=== PATIENT | female | born 1980 | race Caucasian/White ===

== ENCOUNTER 2019-12-04 08:45 | Day surgery (SDC) | payer BC ==
--- NOTE | 2019-12-02 09:57 | HP ---
DATE OF SURGERY: 12/04/2019 ANTICIPATED PROCEDURE: Laparoscopic cholecystectomy possible open liver biopsy. HISTORY OF PRESENT ILLNESS: The patient has symptomatic cholelithiasis, was seen and examined. Procedure discussed in detail and wished to proceed. PAST MEDICAL HISTORY: ALLERGIES: NONE. MEDICATIONS: Paxil. PAST SURGICAL HISTORY: None. SOCIAL HISTORY: Negative. FAMILY HISTORY: Negative. REVIEW OF SYSTEMS: CVS: Negative. PULMONARY: Negative. : Negative. Ortho/Neuro: Negative. PHYSICAL EXAMINATION: VITAL SIGNS: Normal. CHEST: Clear. COR: Regular. ABDOMEN: Satisfactory. IMPRESSION: Symptomatic cholelithiasis. PLAN: Laparoscopic cholecystectomy.
[~2019-12-04 08:45] MED LIST: Lactated Ringers 1,000 ML IV ONE; Sensorcaine 0.25% 10 ML ONE
[2019-12-04] MEDS ORDERED: Lactated Ringers 1,000 ML IV ONE ×2 (09:11→11:47)
[2019-12-04] MEDS ORDERED: MEFOXIN 2 GM PREMIX** 2 GM/50 ML ML IV ONE ×2 (09:11)
[2019-12-04] MEDS ORDERED: Lactated Ringers 1,000 ML IV SCH (09:30)
[2019-12-04] MEDS ORDERED: DIPRIVAN 200 MG/20 ML IV ONE (10:45)
[2019-12-04] MEDS ORDERED: Quelicin Fliptop 200 MG/10 ML ONE (10:45)
[2019-12-04] MEDS ORDERED: Zemuron 100 MG/10 ML ONE ×2 (10:45→11:50)
[2019-12-04] MEDS ORDERED: SUBLIMAZE 250 MCG/5 ML ONE (10:46)
[2019-12-04] MEDS ORDERED: Versed 2 MG/2 ML Injection ONE (10:46)
[2019-12-04] MEDS ORDERED: BRIDION 200MG/2ML IV ONE (11:48)
[2019-12-04] MEDS ORDERED: Zofran 4 MG/2 ML VIAL ONE (11:48)
[2019-12-04] MEDS ORDERED: SUBLIMAZE 100 MCG/2 ML ONE (12:29)
[2019-12-04] MEDS ORDERED: Compazine 10 MG/2 ML ONE (12:30)
[2019-12-04] MEDS ORDERED: MORPHINE SULFATE 10 MG/ML ONE (12:40)
--- NOTE | 2019-12-04 13:39 | OP ---
SURGERY DATE/TIME: 12/04/2019 1206 PREOPERATIVE DIAGNOSIS: Symptomatic cholelithiasis. POSTOPERATIVE DIAGNOSIS: Symptomatic cholelithiasis. PROCEDURE: Laparoscopic cholecystectomy. SURGEON: Dr. Yanez. ANESTHESIA: General endotracheal tube. COMPLICATIONS: None. CONDITION: Stable. INDICATIONS: A patient with upper abdominal pain, ultrasound positive. Seen and examined. Procedure discussed in detail and wished to proceed. DESCRIPTION OF PROCEDURE AND FINDINGS: Taken to surgery. General anesthetic, routine prep and drape. Veress needle inserted. Opening pressure of 1, insufflating pressure 14. Four - 5's. Good visualization. Cystic duct defined. Cystic artery defined. Both structures triply clipped and transected. Clips noted across and well approximated. Gallbladder rolled out of gallbladder fossa. The gallbladder delivered through upper abdominal port. It was necessary to remove the stones first and then the gallbladder. The field was totally dry. Hole closure device used in epigastrium with two sutures #0 Vicryl. The hole closed nicely. Skin closed with aime. Sterile dressing applied. The patient tolerated the procedure satisfactorily. Findings and pictures discussed with the family in the waiting room.
[2019-12-04] MEDS ORDERED: MORPHINE SULFATE 2 MG INJ IV PRN (14:04)
[2019-12-04] MEDS ORDERED: MORPHINE SULFATE 2 MG INJ ONE (14:08)
[2019-12-04 15:08] VITALS: O2SAT 95
[2019-12-04 16:12] VITALS: BP 108/64; PULSE 91
== END 2019-12-04 15:55 | disposition home or self-care (01) ==
LOC: SDC 08:45
PROVIDERS: ATTEND Surgery
DX: K80.20 Calculus of gallbladder without cholecystitis without obstruction (principal)
CPT/HCPCS: 84703; 88304; J0330; J0694; J2250; J2270; J2405; J2704; J3010

== ENCOUNTER 2024-09-18 17:10 | Emergency (ER) | payer OTHER ==
--- NOTE | 2024-09-18 17:28 | ERPHSYRPT ---
- History of Present Illness Source: patient, family Exam Limitations: no limitations Timing/Duration: today Severity: mild Character of Deficits: altered sensation, Left Facial Deficits: no difficulties Baseline/Normal Cognition: alert oriented x 3 Current Cognition: alert oriented x 3 Baseline Gait: walks w/o assistance Associated Symptoms: denies symptoms, No confusion, No loss of consciousness, No weakness, No vision changes, No chest pain, No headache Hx Tetanus, Diphtheria Vaccination/Date Given: Yes Hx Influenza Vaccination/Date Given: No Hx Pneumococcal Vaccination/Date Given: No <ZOEY READ - Last Filed: 09/18/24 18:46> <URVASHI SMITH - Last Filed: 09/18/24 20:10> - History of Present Illness Time Seen by Provider: 09/18/24 17:28 Physician History: This is a morbidly obese 44-year-old white female patient of Dr. Sebastian who presents to the emergency department secondary to left facial numbness that began approximately noon today. The patient states that she also has some left- sided tongue numbness. The symptoms are faint in both areas. Patient states over the last 5 to 6 hours it is no worse and may be slightly improved. 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 Patient is a daily smoker of tobacco cigarettes. She has a history of hypertension, depression, anxiety and hyperlipidemia. Patient states that she has not been sleeping well in the last 2 days. She also is under a lot of stress. Patient's NIH stroke score is 0 (ZOEY READ) Allergies/Adverse Reactions: No Known Drug Allergies Allergy (Verified 09/18/24 17:24) Home Medications: Paroxetine HCl 20 mg [Paxil 20 MG] 20 mg PO DAILY 11/26/19 [History] Atorvastatin Calcium 1 tab PO DAILY 09/18/24 [History] Phentermine HCl 1 tab PO DAILY 09/18/24 [History] Travel Risk - International Travel Have you traveled outside of the country in past 3 weeks: No - Emerging Infectious Disease Are you exhibiting symptoms associated with any current EIDs: No <ZOEY READ - Last Filed: 09/18/24 18:46> - Review of Systems Constitutional: No Symptoms Eyes: No Symptoms Ears, Nose, & Throat: No Symptoms Respiratory: No Symptoms Cardiac: No Symptoms Abdominal/Gastrointestinal: No Symptoms Genitourinary Symptoms: No Symptoms Musculoskeletal: No Symptoms Skin: No Symptoms Neurological: Parasthesia (Mild left face and left side tongue numbness. She describes the intensity as faint) Psychological: No Symptoms Endocrine: No Symptoms Hematologic/Lymphatic: No Symptoms Immunological/Allergic: No Symptoms All Other Systems: Reviewed and Negative <ZOEY READ - Last Filed: 09/18/24 18:46> - Past Medical History Pertinent Past Medical History: No Neurological History: No Pertinent History ENT History: No Pertinent History Cardiac History: No Pertinent History Respiratory History: Sleep Apnea Endocrine Medical History: No Pertinent History Musculoskeletal History: No Pertinent History GI Medical History: Other History: No Pertinent History Psycho-Social History: No Pertinent History Female Reproductive Disorders: No Pertinent History Other Medical History: fatty liver - Past Surgical History Past Surgical History: Yes Neuro Surgical History: No Pertinent History Cardiac: No Pertinent History Respiratory: No Pertinent History Gastrointestinal: No Pertinent History Genitourinary: No Pertinent History Musculoskeletal: No Pertinent History Female Surgical History: No Pertinent History Other Surgical History: leg boil wayne left leg about 11 yrs ago - Female History Hx Last Menstrual Period: 3 weeks - Social History Smoking Status: Current every day smoker Exposure to second hand smoke: No Drug Use: none Patient Lives Alone: No <ZOEY READ - Last Filed: 09/18/24 18:46> - [place] Coma Scale Best Eye Response (Tanya): (4) open spontaneously Best Verbal Response ([place]): (5) oriented Best Motor Response (Tanya): (6) obeys commands Lit[place] Total: 15 - Physical Exam General Appearance: no apparent distress, alert, anxiety, obese Eye Exam: bilateral eye: normal inspection, PERRL, EOMI Ears, Nose, Throat Exam: normal ENT inspection, moist mucous membranes Neck Exam: normal inspection, non-tender, supple, full range of motion Respiratory: normal breath sounds, lungs clear, airway intact, No chest tenderness, No respiratory distress Cardiovascular: regular rate/rhythm, normal heart sounds, normal peripheral pulses Gastrointestinal: soft, normal bowel sounds, No tenderness Pelvic Exam: not done Rectal Exam: not done Back Exam: normal inspection, normal range of motion, vertebral tenderness, No CVA tenderness Extremity Exam: normal inspection, normal range of motion, pelvis stable Mental Status: alert, oriented x 3, cooperative word processor operator Exam: normal hearing, normal speech, PERRL, tongue midline, No facial droop Coordination/Gait: normal finger to nose, normal gait, normal cerebellar funct ion Motor/Sensory: no motor deficit, no sensory deficit, no pronator drift Skin Exam: normal color, warm, dry SpO2 Interpretation: normal O2 Delivery: Room Air <ZOEY READ - Last Filed: 09/18/24 18:46> - Nursing Vital Signs Nursing Vital Signs: Initial Vital Signs Temperature 97.7 F 09/18/24 17:24 Pulse Rate 93 H 09/18/24 17:24 Respiratory Rate 20 09/18/24 17:24 Blood Pressure 157/81 09/18/24 17:24 O2 Sat by Pulse Oximetry 98 09/18/24 17:24 Pain Scale Pain Intensity 0 - Course Nursing assessment & vital signs reviewed: Yes <ZOEY READ - Last Filed: 09/18/24 18:46> Ordered Tests: Active Orders 24 hr Category Date Time Status NPO (ED) STAT Care 09/18/24 18:05 Active HEAD WITHOUT CONTRAST [CT] Stat Exams 09/18/24 18:06 Taken CBC W DIFF Stat Lab 09/18/24 18:18 Completed CMP Stat Lab 09/18/24 18:18 Completed HCG QUALITATIVE, URINE Stat Lab 09/18/24 18:38 Completed UA W/RFX UR CULTURE Stat Lab 09/18/24 18:38 Completed Lab/Rad Data: Laboratory Result Diagrams 09/18/24 18:18 09/18/24 18:18 Laboratory Results 09/18/24 09/18/24 09/18/24 Range/Units 18:38 18:38 18:18 WBC (3.98-10.04) x10^3/uL RBC (3.93-5.22) x10^6/uL Hgb (11.2-15.7) g/dL Hct (34.1-44.9) % MCV (79.4-94.8) fL MCH (25.6-32.2) pg MCHC (32.2-35.5) g/dL RDW (11.7-14.4) % Plt Count (182-369) x10^3/uL MPV (9.4-12.3) fL Gran % (34.0-71.1) % Immature Gran % (Auto) (0.001-0.429) % Nucleat RBC Rel Count (0.00-0.2) % Eos # (Auto) (0.04-0.36) x10^3/uL Immature Gran # (Auto) (0.001-0.031) x10^3u/L Absolute Lymphs (auto) (1.18-3.74) x10^3/uL Absolute Monos (auto) (0.24-0.86) x10^3/uL Absolute Nucleated RBC (0.00-0.012) x10^3u/L Lymphocytes % (19.3-51.7) % Monocytes % (4.7-12.5) % Eosinophils % (0.7-5.8) % Basophils % (0.1-1.2) % Absolute Granulocytes (1.56-6.13) x10^3/uL Basophils # (0.01-0.08) x10^3/uL Sodium 138 (135-145) mmol/L Potassium 4.4 (3.5-5.1) mmol/L Chloride 105 (98-107) mmol/L Carbon Dioxide 27 (22-30) mmol/L Anion Gap 10.8 (5-15) MEQ/L BUN 12 (7-17) mg/dL Creatinine 0.62 (0.52-1.04) mg/dL Estimated GFR 114.0 ML/MIN Glucose 94 (74-106) mg/dL Calcium 9.2 (8.4-10.2) mg/dL Total Bilirubin 0.50 (0.2-1.3) mg/dL AST 44 H (14-36) U/L ALT 31 (0-35) U/L Alkaline Phosphatase 56 (38-126) U/L Serum Total Protein 7.6 (6.3-8.2) g/dL Albumin 4.3 (3.5-5.0) g/dL Urine Color Yellow (Yellow) Urine Appearance Clear (Clear) Urine pH 5.0 (4.6-8.0) Ur Specific Conroy 1.010 (1.005-1.030) Urine Protein Negative (Negative) Urine Glucose (UA) Negative (Negative) mg/dL Urine Ketones Negative (Negative) Urine Blood Negative (Negative) Urine Nitrite Negative (Negative) Urine Bilirubin Negative (Negative) Urine Urobilinogen 0.2 (0.2) mg/dL Ur Leukocyte Esterase Negative (Negative) U Hyaline Cast (Auto) NONE SEEN (0-2) /LPF Urine Microscopic RBC 0-2 (0-5) /HPF Urine Microscopic WBC 0-2 (0-5) /HPF Ur Epithelial Cells None Seen (None Seen) /HPF Urine Bacteria Few A (None Seen) /HPF Urine Culture Reflexed NO (NO) Urine HCG, Qual NEGATIVE (NEGATIVE) 09/18/24 Range/Units 18:18 WBC 9.0 (3.98-10.04) x10^3/uL RBC 4.26 (3.93-5.22) x10^6/uL Hgb 12.9 (11.2-15.7) g/dL Hct 39.2 (34.1-44.9) % MCV 92.0 (79.4-94.8) fL MCH 30.3 (25.6-32.2) pg MCHC 32.9 (32.2-35.5) g/dL RDW 12.6 (11.7-14.4) % Plt Count 304 (182-369) x10^3/uL MPV 9.7 (9.4-12.3) fL Gran % 69.8 (34.0-71.1) % Immature Gran % (Auto) 0.3 (0.001-0.429) % Nucleat RBC Rel Count 0.0 (0.00-0.2) % Eos # (Auto) 0.13 (0.04-0.36) x10^3/uL Immature Gran # (Auto) 0.03 (0.001-0.031) x10^3u/L Absolute Lymphs (auto) 2.12 (1.18-3.74) x10^3/uL Absolute Monos (auto) 0.39 (0.24-0.86) x10^3/uL Absolute Nucleated RBC 0.00 (0.00-0.012) x10^3u/L Lymphocytes % 23.6 (19.3-51.7) % Monocytes % 4.3 L (4.7-12.5) % Eosinophils % 1.4 (0.7-5.8) % Basophils % 0.6 (0.1-1.2) % Absolute Granulocytes 6.26 H (1.56-6.13) x10^3/uL Basophils # 0.05 (0.01-0.08) x10^3/uL Sodium (135-145) mmol/L Potassium (3.5-5.1) mmol/L Chloride (98-107) mmol/L Carbon Dioxide (22-30) mmol/L Anion Gap (5-15) MEQ/L BUN (7-17) mg/dL Creatinine (0.52-1.04) mg/dL Estimated GFR ML/MIN Glucose (74-106) mg/dL Calcium (8.4-10.2) mg/dL Total Bilirubin (0.2-1.3) mg/dL AST (14-36) U/L ALT (0-35) U/L Alkaline Phosphatase (38-126) U/L Serum Total Protein (6.3-8.2) g/dL Albumin (3.5-5.0) g/dL Urine Color (Yellow) Urine Appearance (Clear) Urine pH (4.6-8.0) Ur Specific Conroy (1.005-1.030) Urine Protein (Negative) Urine Glucose (UA) (Negative) mg/dL Urine Ketones (Negative) Urine Blood (Negative) Urine Nitrite (Negative) Urine Bilirubin (Negative) Urine Urobilinogen (0.2) mg/dL Ur Leukocyte Esterase (Negative) U Hyaline Cast (Auto) (0-2) /LPF Urine Microscopic RBC (0-5) /HPF Urine Microscopic WBC (0-5) /HPF Ur Epithelial Cells (None Seen) /HPF Urine Bacteria (None Seen) /HPF Urine Culture Reflexed (NO) Urine HCG, Qual (NEGATIVE) <ZOEY READ - Last Filed: 09/18/24 18:46> - Progress Counseled pt/family regarding: lab results, diagnosis, need for follow-up, rad results <URVASHI SMITH - Last Filed: 09/18/24 20:10> - Progress Progress Note: 09/18/24 18:02 My medical decision making and the assignment of moderate complexity to this patient's medical issue today is based on review of the patient's past medical history, review the patient's medication list, reviewed patient drug allergy list, history present illness and physical findings on examination. The workup in this patient includes CBC, CMP, urinalysis, test, CT scan of the head without contrast, Differential diagnosis includes but is not limited to anxiety about health, dehydration, , urinary tract infection, electrolyte abnormalities, acute intracranial abnormality, Gray's palsy 09/18/24 18:46 I am transferring care of this patient to Dr. Smith at shift change. He will follow-up on the pending studies and make final disposition (ZOEY READ) Assumed care at [address] pending, on reeavaluation patient continues to have NIH of 0, numbness and tingling resolved. Still reports CTS sxs on the left. CT head negative. No significant lab abnormalities. DC home with return precautions and advise close follow up with Dr. Sebastian. (URVASHI SMITH) Medical Desision Making - Diagnostic Testing Diagnostic test were ordered, analyzed, and reviewed by me: Yes Radiological Interpretation: Interpreted by me, Reviewed by me, Teleradiologist Report - Risk of complications Low Risk: Low risk of morbidity from additional dx testing or treatment <URVASHI SMITH - Last Filed: 09/18/24 20:10> - Departure Departure Disposition: Home Critical Care Time: No <ZOEY READ - Last Filed: 09/18/24 18:46> - Departure Departure Disposition: Home Critical Care Time: No <URVASHI SMITH - Last Filed: 09/18/24 20:10> - Departure Clinical Impression: Left facial numbness Condition: Stable Referrals: DAMIEN SEBASTIAN [Primary Care Provider] - Follow up/PCP as directed Instructions: Paresthesia (DC)
[2024-09-18 17:37] VITALS: TEMP 97.7; O2SAT 98
[2024-09-18 18:25] LABS: Absolute Neutrophil Ct (ANC) 6.26 x10^3/uL (1.56-6.13); BASOPHIL % 0.6 % (0.1-1.2); Basophil (Absolute #) 0.05 x10^3/uL (0.01-0.08); Eosinophil % 1.4 % (0.7-5.8); Eosinophil (Absolute #) 0.13 x10^3/uL (0.04-0.36); Hematocrit 39.2 % (34.1-44.9); Hemoglobin 12.9 g/dL (11.2-15.7); IMMATURE GRAN # 0.03 x10^3u/L (0.001-0.031); IMMATURE GRAN % 0.3 % (0.001-0.429); Lymphocyte (Absolute #) 2.12 x10^3/uL (1.18-3.74); Lymphocytes % 23.6 % (19.3-51.7); Mean Corpuscular Hemoglobin 30.3 pg (25.6-32.2); Mean Corpuscular Hgb Concent. 32.9 g/dL (32.2-35.5); Mean Platelet Volume 9.7 fL (9.4-12.3); Monocyte (Absolute #) 0.39 x10^3/uL (0.24-0.86); Monocytes % 4.3 % (4.7-12.5); Neutrophil % 69.8 % (34.0-71.1); Platelet Count 304 x10^3/uL (182-369); Red Blood Count 4.26 x10^6/uL (3.93-5.22); Red Cell Distribution Width 12.6 % (11.7-14.4)
[2024-09-18 18:37] LABS: ALBUMIN 4.3 g/dL (3.5-5.0); ANION GAP 10.8 MEQ/L (5-15); BILIRUBIN,TOTAL 0.5 mg/dL (0.2-1.3); Calcium 9.2 mg/dL (8.4-10.2); Creatinine 1 0.62 mg/dL (0.52-1.04); Potassium 4.4 mmol/L (3.5-5.1); Total Protein 7.6 g/dL (6.3-8.2)
[2024-09-18 18:44] LABS: HCG URINE TEST NEGATIVE (NEGATIVE)
[2024-09-18 18:48] LABS: Appearance Clear (Clear); Bacteria Few /HPF (None Seen); Bilirubin Negative (Negative); Blood Negative (Negative); Epithelial Cells None Seen /HPF (None Seen); Glucose, Urine Negative (Negative); Hyaline Casts NONE SEEN /LPF (0-2); Ketones Negative (Negative); Leukocyte Esterase Negative (Negative); Nitrite Negative (Negative); Protein,Urine Dip Negative (Negative); RBC 0-2 /HPF (0-5); Urobilinogen 0.2 mg/dL (0.2); WBC 0-2 /HPF (0-5)
[2024-09-18 20:24] VITALS: BP 108/66; PULSE 82; RESP 17
--- NOTE | 2024-09-19 08:38 | XRAY ---
Indication: Left facial and lingual numbness. Multiple contiguous axial images obtained through the head without contrast. Comparison: None Normal appearing brain parenchyma, ventricles, and bony calvarium for patient's age. Visualized paranasal sinuses and mastoid air cells are clear. Impression: Normal CT head without contrast exam.
== END 2024-09-18 20:22 | disposition home or self-care (01) ==
LOC: ED 17:10
DX: R20.0 Anesthesia of skin (principal); F17.210 Nicotine dependence, cigarettes, uncomplicated; Z79.899 Other long term (current) drug therapy
CPT/HCPCS: 36415; 70450; 80053; 81001; 81025; 85025; 99283; 99284